=== PATIENT | female | born 1980 | race African-American/Black ===

== ENCOUNTER 2016-09-20 09:13 | Emergency (ER) | payer OTHER ==
[~2016-09-20] VITALS: Ht 172.7 cm; Wt 72.6 kg
[~2016-09-20 09:13] MED LIST: IBUPROFEN 600600 M1 PO; NORCO 5-325 TA1 EACH PO; VALIUM2 MG PO; ZOFRAN ODT4 MG PO
[2016-09-20 10:10] LABS: ABSOLUTE NEUTROPHILS 9.4 thou/uL (1.4-8.2); BASOPHILS 0.6 % (0.0-2.0); EOSINOPHILS 0.3 % (0.0-3.0); HEMATOCRIT 41.4 % (37.0-47.0); HEMOGLOBIN 14.1 gm/dL (12.0-15.0); LYMPHOCYTES 19.3 % (24.0-44.0); MCH 29.2 pg (26.0-34.0); MCHC 34.2 g/dL (28.0-37.0); MCV 85.4 fL (80.0-100.0); MONOCYTES 5.9 % (1.0-8.0); PLATELET COUNT 312 thou/uL (150-400); POLYS 73.9 % (36.0-66.0); RBC 4.85 mil/uL (4.20-5.00); RDW 14.4 % (10.5-14.5); WBC 12.8 thou/uL (4.0-11.0)
[2016-09-20 10:12] LABS: MANUAL DIFF NO
[2016-09-20 10:16] LABS: CALCIUM 9.9 mg/dL (8.5-10.1); CREATININE 1.2 mg/dL (0.6-1.3)
[2016-09-20 10:19] LABS: POTASSIUM 2.7 mmol/L (3.5-5.1)
[2016-09-20 11:05] LABS: URINE BILIRUBIN 2+ (Negative); URINE BLOOD NEGATIVE (Negative); URINE GLUCOSE-RANDOM* NEGATIVE (Negative); URINE KETONES 2+ (Negative); URINE NITRITE POSITIVE (Negative); URINE PROTEIN (DIPSTICK) 3+ (Negative); URINE SPECIFIC GRAVITY >= 1.030 (1.003-1.035)
[2016-09-20 11:08] LABS: URINE COLOR AMBER
[2016-09-20 11:09] LABS: ICTOTEST (BILI CONFIRMATORY) Positive (Negative)
[2016-09-20 11:20] LABS: FINE GRANULAR CASTS 4-10 Moderate /LPF (None Seen); HYALINE CASTS 4-10 Moderate /LPF (None Seen); SQUAMOUS >10 Many /LPF (0-3)
[2016-09-20 11:21] LABS: CRYSTALS None Seen /LPF (None Seen); URINE WBC 6-15 Few /HPF (0-5)
[2016-09-20 11:23] LABS: BACTERIA >30 Many /HPF (None Seen); URINE RBC None Seen /HPF (0-2)
[2016-09-20] MEDS ORDERED: MACROBID 100 M100 M1 PO (11:59)
[2016-09-20] MEDS ORDERED: KLOR-CON 1010 MEQ PO (11:59)
[2016-09-20] MEDS ORDERED: ZOFRAN ODT4 MG PO (12:00)
[2016-09-20 12:20] VITALS: BP 133/76
== END 2016-09-20 12:20 | disposition home or self-care (01) ==
LOC: ER 09:13
PROVIDERS: Nurse Practitioner Family
DX: O21.9 Vomiting of pregnancy, unspecified (principal); O23.41 Unspecified infection of urinary tract in pregnancy, first trimester; Z3A.12 12 weeks gestation of pregnancy

== ENCOUNTER 2019-07-05 00:13 | Emergency (ER) | payer OTHER ==
[~2019-07-05] VITALS: Ht 172.7 cm; Wt 81.7 kg
[~2019-07-05 00:13] MED LIST changes: +KLOR-CON 1010 MEQ PO; +MACROBID 100 M100 M1 PO
[2019-07-05 01:15] VITALS: BP 150/76
== END 2019-07-05 01:16 | disposition home or self-care (01) ==
LOC: ER 00:13
DX: M79.642 Pain in left hand (principal); R51 Headache; F17.210 Nicotine dependence, cigarettes, uncomplicated; Z98.890 Other specified postprocedural states; W01.0XXA Fall on same level from slipping, tripping and stumbling without subsequent striking against object, initial encounter; Y93.89 Activity, other specified; Y92.89 Other specified places as the place of occurrence of the external cause; Y99.8 Other external cause status

== ENCOUNTER 2019-08-02 01:44 | Emergency (ER) | payer OTHER ==
[~2019-08-02] VITALS: Ht 170.2 cm; Wt 81.7 kg
[2019-08-02] MEDS ORDERED: NAPROSYN500 MG PO (03:14)
[2019-08-02 03:26] VITALS: BP 127/87
== END 2019-08-02 03:28 | disposition home or self-care (01) ==
LOC: ER 01:44
DX: M25.512 Pain in left shoulder (principal); M54.5 Low back pain; R51 Headache; F17.210 Nicotine dependence, cigarettes, uncomplicated; Z98.890 Other specified postprocedural states

== ENCOUNTER 2019-08-30 23:09 | Emergency (ER) | payer OTHER ==
[~2019-08-30] VITALS: Ht 172.7 cm; Wt 81.7 kg
[~2019-08-30 23:09] MED LIST changes: +NAPROSYN500 MG PO
[2019-08-31 00:58] VITALS: BP 130/74
== END 2019-08-31 00:59 | disposition home or self-care (01) ==
LOC: ER 23:09
DX: S70.12XA Contusion of left thigh, initial encounter (principal); M25.562 Pain in left knee; F17.210 Nicotine dependence, cigarettes, uncomplicated; W10.8XXA Fall (on) (from) other stairs and steps, initial encounter; Y93.89 Activity, other specified; Y92.89 Other specified places as the place of occurrence of the external cause; Y99.8 Other external cause status

== ENCOUNTER 2019-09-14 08:28 | Emergency (ER) | payer OTHER ==
[~2019-09-14] VITALS: Ht 172.7 cm; Wt 81.7 kg
[2019-09-14] MEDS ORDERED: MOBIC15 MG PO (10:24)
[2019-09-14 10:30] VITALS: BP 121/68
== END 2019-09-14 10:37 | disposition home or self-care (01) ==
LOC: ER 08:28
DX: S60.212A Contusion of left wrist, initial encounter (principal); F17.210 Nicotine dependence, cigarettes, uncomplicated; W23.0XXA Caught, crushed, jammed, or pinched between moving objects, initial encounter; Y93.89 Activity, other specified; Y92.89 Other specified places as the place of occurrence of the external cause; Y99.8 Other external cause status

== ENCOUNTER 2019-10-03 09:21 | Emergency (ER) | payer OTHER ==
[~2019-10-03] VITALS: Ht 172.7 cm; Wt 81.7 kg
[~2019-10-03 09:21] MED LIST changes: +MOBIC15 MG PO
[2019-10-03 09:33] VITALS: BP 122/81
--- NOTE | 2019-10-03 11:09 | EKG ---
[facility] [place] [address] ELECTROCARDIOGRAM REPORT Name: NEEL DANIELSON Room #: DEP [facility]#: [id number] Admission: 10/03/19 Attend Phys: Discharge: 10/03/19 Date of : 82 Report #: [id number] THIS REPORT FOR: cc: NIA - [place] family physician/PCP NIA - [place] family physician/PCP Chace Ruiz MD ~ THIS REPORT FOR: //name// [facility] ED Test Date: 2019-10-03 Test Time: 10:14:23 Pat Name: NEEL DANIELSON Department: Room: Gender: [place] [employer]: [facility] : 1980 Requested By: Aria Cano Order Number: [id number] MD: Chace Ruiz Measurements Intervals [place] Rate: 58 P: -13 MN: 182 QRS: 70 QRSD: 81 T: 33 QT: 424 QTc: 417 Interpretive Statements Sinus rhythm Baseline wander in lead(s) V6 No previous ECG available for comparison Electronically Signed On 10-03-2019 11:08:28 CDT by Chace Ruiz [email or web address] <ELECTRONICALLY SIGNED> By: Chace Ruiz MD 10/03/19 1108 [id number] Chace Ruiz MD /EPI
== END 2019-10-03 10:55 | disposition home or self-care (01) ==
LOC: ER 09:21
DX: R07.89 Other chest pain (principal); M54.5 Low back pain; F17.210 Nicotine dependence, cigarettes, uncomplicated; Z98.890 Other specified postprocedural states; Z79.899 Other long term (current) drug therapy; V47.5XXA Car driver injured in collision with fixed or stationary object in traffic accident, initial encounter; Y93.I9 Activity, other involving external motion; Y92.828 Other wilderness area as the place of occurrence of the external cause; Y99.8 Other external cause status

== ENCOUNTER 2019-11-17 08:41 | Emergency (ER) | payer OTHER ==
[~2019-11-17] VITALS: Ht 172.7 cm; Wt 81.7 kg
[2019-11-17 10:35] VITALS: BP 131/78
== END 2019-11-17 10:35 | disposition home or self-care (01) ==
LOC: ER 08:41
DX: M25.512 Pain in left shoulder (principal); F17.210 Nicotine dependence, cigarettes, uncomplicated; V89.2XXA Person injured in unspecified motor-vehicle accident, traffic, initial encounter; Y93.89 Activity, other specified; Y92.89 Other specified places as the place of occurrence of the external cause; Y99.8 Other external cause status

== ENCOUNTER 2019-12-19 22:30 | Emergency (ER) | payer OTHER ==
[~2019-12-19] VITALS: Ht 172.7 cm; Wt 81.7 kg
[2019-12-19 22:37] VITALS: BP 115/79
== END 2019-12-19 23:26 | disposition home or self-care (01) ==
LOC: ER 22:30
DX: M25.512 Pain in left shoulder (principal); M54.2 Cervicalgia; F17.210 Nicotine dependence, cigarettes, uncomplicated; Z98.890 Other specified postprocedural states; V89.2XXA Person injured in unspecified motor-vehicle accident, traffic, initial encounter; Y93.89 Activity, other specified; Y92.488 Other paved roadways as the place of occurrence of the external cause; Y99.8 Other external cause status

== ENCOUNTER 2020-04-25 19:56 | Emergency (ER) | payer OTHER ==
[~2020-04-25] VITALS: Ht 172.7 cm; Wt 87.1 kg
[2020-04-25] MEDS ORDERED: MOBIC7.5 MG PO (21:05)
[2020-04-25 21:40] VITALS: BP 132/59
== END 2020-04-25 21:40 | disposition home or self-care (01) ==
LOC: ER 19:56
DX: N64.4 Mastodynia (principal); F17.210 Nicotine dependence, cigarettes, uncomplicated; Z98.890 Other specified postprocedural states

== ENCOUNTER 2020-06-18 10:37 | Emergency (ER) | payer OTHER ==
[~2020-06-18] VITALS: Ht 172.7 cm; Wt 87.1 kg
[~2020-06-18 10:37] MED LIST changes: +MOBIC7.5 MG PO
[2020-06-18 12:54] VITALS: BP 149/69
== END 2020-06-18 13:00 | disposition home or self-care (01) ==
LOC: ER 10:37
DX: M79.602 Pain in left arm (principal); F17.210 Nicotine dependence, cigarettes, uncomplicated; W10.9XXA Fall (on) (from) unspecified stairs and steps, initial encounter; Y93.89 Activity, other specified; Y92.89 Other specified places as the place of occurrence of the external cause; Y99.8 Other external cause status

== ENCOUNTER 2020-07-23 18:38 | Emergency (ER) | payer OTHER ==
[~2020-07-23] VITALS: Ht 172.7 cm; Wt 86.2 kg
[2020-07-23 18:44] VITALS: BP 135/75
== END 2020-07-23 20:44 | disposition home or self-care (01) ==
LOC: ER 18:38
DX: R22.42 Localized swelling, mass and lump, left lower limb (principal); M79.672 Pain in left foot; F17.210 Nicotine dependence, cigarettes, uncomplicated; Z98.890 Other specified postprocedural states; W20.8XXA Other cause of strike by thrown, projected or falling object, initial encounter; Y93.89 Activity, other specified; Y92.69 Other specified industrial and construction area as the place of occurrence of the external cause; Y99.9 Unspecified external cause status

== ENCOUNTER → 2021-04-23 | Emergency (ER) | payer OTHER ==
[~2021-04-23] VITALS: Ht 175.3 cm; Wt 89.8 kg
[2021-04-23 10:51] VITALS: BP 124/83
== END ==
LOC: ER 08:39
DX: M25.562 Pain in left knee (principal); F17.210 Nicotine dependence, cigarettes, uncomplicated